=== PATIENT | female | born 1995 | race Hispanic/Latino ===

== ENCOUNTER 2023-02-13 14:12 | Emergency (ER) | payer SELFPAY ==
[~2023-02-13] VITALS: Ht 165.1 cm; Wt 144.3 kg
[2023-02-13] MEDS ORDERED: FAMOTIDINE 20 MG/2 ML VIAL IV STA (15:10)
[2023-02-13] MEDS ORDERED: ONDANSETRON HCL INJ 2MG/ML 2ML 2 MG/ML VIAL IV STA (15:10)
[2023-02-13] MEDS ORDERED: SODIUM CHLORIDE 0.9% 1000ML 1,000 ML IV SCH (15:15)
[2023-02-13] MEDS ORDERED: birth control (15:25)
[2023-02-13] MEDS ORDERED: SODIUM CHLORIDE 0.9% 1000ML 1,000 ML ONE (15:55)
[2023-02-13] MEDS ORDERED: FAMOTIDINE 20 MG/2 ML VIAL IV ONE (15:55)
[2023-02-13] MEDS ORDERED: ONDANSETRON HCL INJ 2MG/ML 2ML 2 MG/ML VIAL ONE (15:55)
[2023-02-13] MEDS ORDERED: IOPAMIDOL 370 MG/ML 100 ML INFUS..BTL INJ ONE (17:07)
== END 2023-02-13 19:30 | disposition home or self-care (01) ==
LOC: FSED 14:16
DX: K59.00 Constipation, unspecified (principal); N92.6 Irregular menstruation, unspecified; E66.01 Morbid (severe) obesity due to excess calories
CPT/HCPCS: 36415; 74177; 80053; 81003; 81025; 84702; 85025; 96374; 96375; 99284; J2405; J7030; Q9967